=== PATIENT | male | born 1940 | race Caucasian/White ===

== ENCOUNTER 2016-10-25 10:22 | Emergency (ER) | payer MEDICARE, BC ==
[2016-10-25 10:43] VITALS: BP 137/81
--- NOTE | 2016-10-25 11:20 | EDM.PDOC ---
ED HPI GENERAL MEDICAL PROBLEM - General Chief Complaint: Back Pain or Injury Stated Complaint: BACK PAIN Time Seen by Provider: 10/25/16 11:02 Source of Information: Reports: Patient, Family, RN Notes Reviewed History Limitations: Reports: No Limitations - History of Present Illness INITIAL COMMENTS - FREE TEXT/NARRATIVE: 76-year-old gentleman presents emergency department day complaint of low back pain, he has a history of chronic back pain has received epidural injections in the past had went to the clinic to get set up for injections however there was some confusion he was sent to the emergency department for this procedure. I did review his old records he last had epidural injections in 2014 I spoke with anesthesia however he does need a new order for epidural injections. He denies any loss of bowel or bladder and states he is only using Aleve for his pain control. Lower Back Pain Score (Numeric/FACES): 9 - Related Data Allergies Allergy/AdvReac Type Severity Reaction Status Date / Time No Known Allergies Allergy Verified 10/25/16 10:43 Home Meds: Home Meds Lovastatin 40 mg PO DAILY 09/08/13 [History] Aspirin [Halfprin] 81 mg PO DAILY tab.ec 03/27/16 [Rx] Dextromethorphan/guaiFENesin [Robitussin DM] 10 ml PO Q4H PRN #1 bottle [Rx] Doxazosin [Cardura] 8 mg PO BEDTIME tablet 03/27/16 [Rx] Furosemide [Lasix] 40 mg PO DAILY tablet 03/27/16 [Rx] Metoprolol Succinate [Toprol XL] 25 mg PO DAILY tab.er 03/27/16 [Rx] Oxybutynin 5 mg PO TID tablet 03/27/16 [Rx] Past Medical History HEENT History: Reports: Impaired Vision Cardiovascular History: Reports: CAD, Heart Failure, High Cholesterol, Hypertension, Pacemaker, Stents, Other (See Below) Other Cardiovascular History: 3rd degree heart block, bradycardia Respiratory History: Reports: SOB Gastrointestinal History: Reports: Colon Polyp Musculoskeletal History: Reports: Back Pain, Chronic, Osteoarthritis Endocrine/Metabolic History: Reports: Obesity/BMI 30+ - Infectious Disease History Infectious Disease History: Reports: Chicken Pox - Past Surgical History Respiratory Surgical History: Reports: None Endocrine Surgical History: Reports: None Neurological Surgical History: Reports: Laminectomy Musculoskeletal Surgical History: Reports: None, Arthroscopic Knee Social & Family History - Tobacco Use Smoking Status *Q: Former Smoker Years of Tobacco use: 55 Packs/Tins Daily: 2 Used Tobacco, but Quit: Yes Month Tobacco Last Used: October Second Hand Smoke Exposure: No - Caffeine Use Caffeine Use: Reports: Coffee - Alcohol Use Days Per Week of Alcohol Use: 4 Number of Drinks Per Day: 3 Total Drinks Per Week: 12 - Recreational Drug Use Recreational Drug Use: No ED ROS GENERAL - Review of Systems Review Of Systems: See Below Constitutional: Reports: No Symptoms Respiratory: Reports: No Symptoms Cardiovascular: Reports: No Symptoms GI/Abdominal: Reports: No Symptoms Musculoskeletal: Reports: Back Pain ED EXAM,LOWER BACK PAIN/INJURY - Physical Exam Exam: See Below Exam Limited By: No Limitations General Appearance: Alert, WD/WN, No Apparent Distress Respiratory/Chest: No Respiratory Distress Back Exam: Normal Inspection, Decreased Range of Motion, Paraspinal Tenderness. No: CVA Tenderness (R), CVA Tenderness (L), Muscle Spasm, Vertebral Tenderness Course - Vital Signs Last Recorded V/S: Last Vital Signs Temp 98.0 F 10/25/16 10:58 Pulse 83 10/25/16 10:58 Resp 14 10/25/16 10:58 BP 137/81 10/25/16 10:58 Pulse Ox 92 L 10/25/16 10:58 Departure - Departure Time of Disposition: 11:19 Disposition: Home, Self-Care 01 Condition: good Clinical Impression: Back pain Qualifiers: Back pain location: low back pain Chronicity: chronic Back pain laterality: left Sciatica presence: without sciatica Qualified Code(s): M54.5 - Low back pain; G89.29 - Other chronic pain - Discharge Information Forms: ED Department Discharge Additional Instructions: Continue to use Aleve for baseline pain control, use the hydrocodone for breakthrough pain, please followup with your primary care provider for reevaluation in order for epidural injections - Assessment/Plan Plan: Assessment Acuity = chronic Site and laterality = low back pain Etiology = unclear etiology Manifestations = none Location of injury = home Lab values = none Plan Prescription written for hydrocodone for total number 20 tablets have her followup with his primary care provider for reevaluation and order for epidural injections Patient was in agreement with the plan all questions were answered, they were instructed to return to the emergency department or call for worsening symptoms. This note was dictated using [employer] voice recognition software please call with any questions.
== END 2016-10-25 11:29 | disposition home or self-care (01) ==
LOC: JP.ED 10:22
DX: M54.5 Low back pain (principal); G89.29 Other chronic pain; H54.7 Unspecified visual loss; I25.10 Atherosclerotic heart disease of native coronary artery without angina pectoris; I11.0 Hypertensive heart disease with heart failure; I50.9 Heart failure, unspecified; E78.00 Pure hypercholesterolemia, unspecified; M19.90 Unspecified osteoarthritis, unspecified site; E66.9 Obesity, unspecified; Z68.34 Body mass index [BMI] 34.0-34.9, adult; Z79.82 Long term (current) use of aspirin; Z79.899 Other long term (current) drug therapy; Z87.891 Personal history of nicotine dependence; Z98.890 Other specified postprocedural states; Z96.659 Presence of unspecified artificial knee joint
CPT/HCPCS: 99282; 99283

== ENCOUNTER 2016-12-12 07:57 | Inpatient (IN) | payer MEDICARE, BC ==
[~2016-12-12 07:57] MED LIST: Bupivacaine 0.5%/EPINEPHrine 1:200,000 50 ML MDV ONE
[2016-12-12] MEDS ORDERED: Dextrose 5%-Lactated Ringers 1,000 ML IV SCH (08:30)
[2016-12-12] MEDS ORDERED: Hydrochlorothiazide 12.5 MG Cap PO ONE (09:15)
[2016-12-12] MEDS ORDERED: Lisinopril 10 MG Tab PO ONE (09:15)
[2016-12-12] MEDS ORDERED: ceFAZolin 2 GM in Sodium Chloride 0.9% 50 ML IV ONE (09:30)
[2016-12-12] MEDS ORDERED: Dexamethasone 4 MG/ML SDV ONE (09:58)
[2016-12-12] MEDS ORDERED: Midazolam 1 MG/ML 2 ML SDV ONE (09:58)
[2016-12-12] MEDS ORDERED: Rocuronium 50 MG/5 ML Vial ONE (09:58)
[2016-12-12] MEDS ORDERED: Propofol 200 MG/20 ML SDV ONE (09:58)
[2016-12-12] MEDS ORDERED: Ondansetron 4 MG/2 ML SDV ONE (09:58)
[2016-12-12] MEDS ORDERED: fentaNYL 250 MCG/5 ML SDV ONE ×2 (09:58→10:39)
[2016-12-12] MEDS ORDERED: Neostigmine Methylsulfate 1 MG/ML 5 ML Syringe ONE (09:58)
[2016-12-12] MEDS ORDERED: ePHEDrine 50 MG/ML SDV ONE (10:25)
[2016-12-12] MEDS ORDERED: Meropenem 500 MG SDV ONE (10:40)
[2016-12-12] MEDS ORDERED: Ketorolac 60 MG/2 ML SDV ONE (10:55)
[2016-12-12] MEDS ORDERED: Meropenem 500 MG SDV IRR ONE (10:55)
[2016-12-12] MEDS ORDERED: HYDROmorphone 2 MG Tab PO PRN (14:46)
[2016-12-12] MEDS ORDERED: Ondansetron 4 MG/2 ML SDV IV PRN (14:47)
[2016-12-12] MEDS ORDERED: Pantoprazole 40 MG Vial IV SCH (16:00)
[2016-12-12] MEDS: Ibuprofen 600 MG Tab PO SCH ×2 (16:37→21:32)
[2016-12-12] MEDS: Acetaminophen 325 MG Tab PO SCH (17:42)
[2016-12-12] MEDS: Dextrose 5%-Lactated Ringers 1,000 ML IV SCH (19:35)
[2016-12-12] MEDS ORDERED: Doxazosin 4 MG Tab PO SCH (21:00)
[2016-12-12] MEDS: Oxybutynin 5 MG Tab PO SCH (21:33)
[2016-12-12] MEDS: Carbidopa/Levodopa 25-100 MG Tab PO SCH (21:33)
[2016-12-13] MEDS: Acetaminophen 325 MG Tab PO SCH ×2 (00:47→05:33)
[2016-12-13] MEDS: Dextrose 5%-Lactated Ringers 1,000 ML IV SCH (03:39)
[2016-12-13] MEDS: Ibuprofen 600 MG Tab PO SCH (05:33)
[2016-12-13 07:08] VITALS: BP 136/72
[2016-12-13] MEDS: Carbidopa/Levodopa 25-100 MG Tab PO SCH (08:17)
[2016-12-13] MEDS: Oxybutynin 5 MG Tab PO SCH (08:17)
[2016-12-13] MEDS ORDERED: Hydrochlorothiazide 12.5 MG Cap PO SCH (09:00)
[2016-12-13] MEDS ORDERED: Lisinopril 10 MG Tab PO SCH (09:00)
[2016-12-13] MEDS ORDERED: Doxazosin 4 MG Tab PO SCH (09:00)
[2016-12-13] MEDS ORDERED: Furosemide 40 MG Tab PO SCH (09:00)
[2016-12-13] MEDS ORDERED: Aspirin 81 MG Tab.EC PO SCH (09:00)
--- NOTE | 2016-12-13 10:57 | OR ---
DATE OF PROCEDURE: 12/12/2016 PREOPERATIVE DIAGNOSIS: Incarcerated umbilical hernia. POSTOPERATIVE DIAGNOSIS: Incarcerated umbilical hernia. OPERATIVE PROCEDURE: Laparoscopic repair of incarcerated umbilical hernia with mesh ([id number]). ANESTHESIA: General. MANAGER FIELD SALES: Sofi Tinoco PA-C. INDICATION FOR PROCEDURE: This is a 76-year-old presenting with increasingly symptomatic umbilical hernia. It is not presently entirely reducible. The plan is to proceed with a laparoscopic or if necessary open repair with mesh. Potential risks of the procedure including bleeding, infection, injury to underlying viscera, problems with the hernia recurring or mesh becoming infected were all reviewed, along with the remote possibility of cardiopulmonary, septic, or hemorrhagic complications leading to and the patient wishes to proceed. DETAILS OF PROCEDURE: The patient was taken to the operating room and placed in a supine position. After general endotracheal anesthesia was induced, a Lucas catheter was inserted and the abdomen prepped and draped. In the left lateral abdomen, a transverse incision was made. The peritoneal cavity entered under direct vision with Optiview trocar, inflated to 15 mmHg pressure of CO2. Laparoscope was reinserted. No underlying trocar insertion site injuries were seen. Following this, 5- mm trocars placed in the left upper quadrant and left lower quadrant, and general exploration was undertaken. The patient was noted to have a normal-appearing liver and no other significant abnormalities were noted apart from the incarcerated umbilical hernia. This contained some omentum within it, along with the preperitoneal fat. Using harmonic scalpel as well as external pressure, the hernia was incised and reduced and the hernia contents and sac were excised and sent as a specimen. A Ventrio ST hernia mesh with a 11.4 cm diameter in a circular configuration was then selected. This was soaked in antibiotic-containing saline solution. A single stitch was placed in the center of the mesh, and this was placed into the intraperitoneal location. A small stab wound just below the umbilicus was made, and the suture passer was then used to pass through the center of the area of the hernia and pull the suture up in that area, thus centering the mesh over the hernia defect. The fascial defect was around 1 cm. Mesh was then circumferentially affixed with absorbable tacking screws, and at that point, good fixation was noted. The sutures were cut at the skin level, and at the point, the trocars were removed. The fascia at the 12 mm site was closed with 0 Vicryl stitch and skin at each incision with 4-0 Vicryl skin stitch. Dressing was applied. The patient was to the recovery room in satisfactory condition. There were no evident complications. Physician assistant product manager, Sofi Tinoco, played an essential role in assisting in this case, helping to position the patient, retract structures as needed, as well as suturing and cutting sutures as indicated. Her presence improved the patient safety and decreased operative time. Gil Robertson MD /[id number]
--- NOTE | 2016-12-14 02:37 | DISCH ---
ADMISSION DIAGNOSIS: Umbilical hernia. DISCHARGE DIAGNOSIS: Laparoscopic repair of umbilical hernia with mesh. HISTORY: Jalen Arroyo is a 76-year-old male with an umbilical hernia. After preoperative evaluation and discussion of possible risks and possible complications, he wished to proceed with surgical procedure. HOSPITAL COURSE: Jalen had his surgery on 12/12/2016. He had no operative complications. On postop day 1, his pain was well managed. His activity was good. He tolerated a diet and was able to be discharged to home. PHYSICAL EXAMINATION: GENERAL: Jalen is a 76-year-old male. VITAL SIGNS: Height is 5 feet 7 inches. Weight is 208 pounds. TPR 97.2, 66, 20, and blood pressure 136/72. HEENT: Negative. NECK: Supple. HEART: Regular rate and rhythm. LUNGS: Clear. ABDOMEN: Dressings dry and intact. Abdominal binder is on. EXTREMITIES: Without peripheral edema. DISPOSITION: Discharged to home. CONDITION: Stable and improving. FOLLOWUP: With Sofi Tinoco PA-C on 12/20/2016 at 09:00 a.m. HOME MEDICATIONS: 1. Tylenol 650 mg oral q.6 hours x7 days, #28. 2. Dilaudid 2 mg 1 to 2 every 4 hours p.r.n. pain, #30. 3. Ibuprofen scheduled 600 mg q.6 hours #28 and to take with food. He is to resume his home medications. DISCHARGE DIET: Usual diet as tolerated. Drink 8 to 10 glasses of water a day. ACTIVITY: No lifting greater than 10 pounds for 6 weeks. DISCHARGE INSTRUCTIONS: Driving, do not drive while on pain medication. May shower. Wear abdominal binder for 6 weeks with pressure dressing over hernia site. Notify provider if any fever, drainage, nausea, or vomiting. Keep site clean and dry.
== END 2016-12-13 08:55 | disposition home or self-care (01) | DRG 355 ==
LOC: JP.SDS 07:57 → JP.MS 07:57 → EDSTATUS 09:00 → UNDOADMIN 11:00 → JP.MS 11:00
PROVIDERS: ADMIT Surgery; ATTEND Surgery
PROC: 0WUF4JZ Supplement Abdominal Wall with Synthetic Substitute, Percutaneous Endoscopic Approach (ICD-10-PCS; principal; 2016-12-12)
DX: K42.9 Umbilical hernia without obstruction or gangrene (principal); G20 Parkinson's disease; R35.1 Nocturia; Z79.899 Other long term (current) drug therapy; Z87.891 Personal history of nicotine dependence
CPT/HCPCS: 36415; 80053; 83735; 84100; 85027; 88302; 94762; A9270-GY; C1781; C9113; J0131; J0690; J1100; J1885; J2185; J2250; J2405; J2704; J3010; J7042; J7050

== ENCOUNTER 2018-02-20 07:46 | Day surgery (SDC) | payer MEDICARE, BC ==
[~2018-02-20 07:46] MED LIST changes: +Bupivacaine 0.5% 50 ML MDV ONE; -Bupivacaine 0.5%/EPINEPHrine 1:200,000 50 ML MDV ONE; +Lidocaine 1% with EPINEPHrine 1:100,000 50 ML MDV ONE
[2018-02-20] MEDS ORDERED: Dextrose 5%-Lactated Ringers 1,000 ML IV SCH (08:15)
[2018-02-20] MEDS ORDERED: Propofol 200 MG/20 ML SDV ONE ×2 (09:36→09:37)
[2018-02-20] MEDS ORDERED: fentaNYL 100 MCG/2 ML SDV ONE (09:36)
[2018-02-20 11:43] VITALS: BP 118/67
--- NOTE | 2018-02-23 08:16 | OR ---
DATE OF PROCEDURE: 02/20/2018 PREOP DIAGNOSIS: Lymphadenopathy. POSTOP DIAGNOSIS: Lymphadenopathy. PROCEDURE: Excisional biopsy of left inguinal lymph node. ANESTHESIA: IV anesthesia with monitored anesthesia care. INDICATION: This 77-year-old white male was found to have palpable nodes in his neck and groin. CAT scan shows he has multiple nodes throughout his body, including the retroperitoneal area, and it is highly suggestive of lymphoma. A request was made for excisional biopsy, and we elected to do the left groin. Additionally the CAT scan suggested left inguinal hernia. I was unable to demonstrate this in the clinic, and today I checked again and cannot demonstrate a left inguinal hernia. I counseled him for excisional biopsy of the left inguinal lymph node. He gave his informed consent to proceed. PROCEDURE DETAILS: After adequate IV anesthesia was obtained, the patient's lower abdomen, groin, and genitalia were prepped and draped in usual sterile fashion. Time-out was held. Lidocaine 1% with epinephrine in a 50:50 mix with 0.5% Marcaine was infiltrated about the left groin. A left groin incision was made. This was carried deep bluntly and sharply to the area of the lymph nodes. The lymph node was elevated and excised using electrocautery. This the tissues adherent to it. Bleeding was controlled with a [id number]-pa-kwkae stitch of 3-0 Vicryl. All looked well. The deep tissues were closed with interrupted 3-0 Vicryl suture, and 4-0 Vicryl using a subcuticular stitch was placed to approximate the skin. Dermabond was applied. The patient tolerated the procedure well and was brought to the recovery room in good condition. Rudi Ruggiero MD /[id number]
== END 2018-02-20 12:00 | disposition home or self-care (01) ==
LOC: JP.SDS 07:46
PROVIDERS: ATTEND Surgery
DX: C83.35 Diffuse large B-cell lymphoma, lymph nodes of inguinal region and lower limb (principal); Z87.891 Personal history of nicotine dependence
CPT/HCPCS: 38500; 88307; J2704; J3010; J3490; J7042